=== PATIENT | male | born 1940 | race Caucasian/White ===

== ENCOUNTER → 2018-02-07 | Outpatient (CLI) | payer OTHER ==
[~2018-02-07] MED LIST: ADULT LOW DOSE81 MG PO; CARTIA XT240 M1 PO; ELIQUIS5 MG PO; IRON325 PO; LOPRESSOR25 PO; MULTAQ400 MG PO; PACERONE 200 M200 M1 PO; PRADAXA150 MG PO; TOPROL XL25 MG PO; UROXATRAL10 MG PO; ZOCOR 10 MG TAB10 MG PO; [UNRECOGNIZED DRUG - OTHER] PO
[2018-02-07 09:53] LABS: CREATININE 1.1 mg/dL (0.7-1.3)
== END ==
LOC: CAT 06:23
PROVIDERS: Urology
DX: N28.1 Cyst of kidney, acquired (principal); R31.0 Gross hematuria

== ENCOUNTER → 2018-05-20 | Outpatient (CLI) | payer OTHER ==
[~2018-05-20] VITALS: Ht 177.8 cm; Wt 99.8 kg
[~2018-05-20] MED LIST changes: +ALFUZOSIN HCL10 MG PO; +COUMADIN 5 MG TA5 M1 PO; +PRED FORTE 1% EY5 M1 OPHTHALMIC
--- NOTE | ~2018-05-20 | P ---
[facility] [place] [address] PROCEDURE REPORT Name: REINIER WANG Room #: REG [facility]#: [id number] Admission: 05/20/18 Attend Phys: Reinier Polo MD Discharge: Date of : 42 Report #: [id number] THIS REPORT FOR: //name// CC: Darron Sheffield DO Reinier Polo BRIEF HISTORY: The patient is a 78-year-old male with a history of a tubular adenoma in 2012. It is also noted his grandfather had colon cancer in his 70s. PREOPERATIVE DIAGNOSIS: High risk screening colonoscopy. POSTOPERATIVE DIAGNOSES: 1. Multiple colon polyps. 2. Moderate sigmoid diverticulosis coli. MEDICATIONS: Deep sedation with propofol per anesthesia. SPECIMENS: 1. Cecal polyp. 2. Proximal ascending colon polyps times 2. 3. Polyp at 60 cm. 4. Polyp at 50 cm. ESTIMATED BLOOD LOSS: 3 mL. PROCEDURE: Colonoscopy to cecum and terminal ileum with snare polypectomy and biopsy. FINDINGS: Prior to propofol sedation, procedure of colonoscopy discussed with the patient as well as potential risks, benefits, and complications. He indicates he understands and desires to proceed. With the patient in left lateral decubitus position, digital examination was completed, which revealed no abnormalities. Subsequently, the Olympus video colonoscope was introduced in the rectum, advanced under direct vision to the cecum. Done with minimal difficulty. The cecum was identified by the ileocecal valve and the appendiceal orifice. I was able to briefly advance the tip of the scope in the distal terminal ileum and did see a villous pattern, but due to looping, the scope would not stay. At that point, scope was slowly withdrawn and careful circumferential views were obtained including retroflexion of the scope in the ascending colon. Upon slow withdrawal of the scope, the prep was noted to be good. The mucosa was within normal limits, normal vascular pattern, normal light reflex. As we withdrew the scope, one diminutive polyp was seen and removed by biopsy from the cecum and two diminutive polyps were seen and removed by biopsy from the proximal ascending colon. As we withdrew the scope, no additional abnormalities were noted until about 60 cm in the descending colon [address] [address] PROCEDURE REPORT Name: REINIER WANG Room #: REG [facility].#: [id number] Admission: 05/20/18 Attend Phys: Reinier Polo MD Discharge: Date of : 42 Report #: [id number] and a 5-mm sessile polyp was seen and removed by cold snare polypectomy. At 50 cm, a slightly smaller, about 4 x 4 mm polyp was seen and removed by cold snare polypectomy. The scope was further withdrawn. He was noted to have moderately severe diverticular disease of the sigmoid colon without endoscopic evidence of diverticulitis. The scope was withdrawn into the rectum and upon retroflexion, no abnormalities were seen. Scope was withdrawn. The patient tolerated the procedure well. CONDITION OF THE PATIENT UPON DISCHARGE: Following procedure, the patient drowsy and arousable and will be discharged to home when fully ambulatory. INSTRUCTIONS TO THE PATIENT AND FAMILY AT THE TIME OF DISCHARGE: A total of 5 polyps were identified and removed today. We will follow up on the path report. If 3 or more adenomas, he should return in 3 years, otherwise he should return in 5 years. Last colonoscopy was in 2012. Withdrawal time from the cecum including the polypectomies was 27 minutes 46 seconds. <ELECTRONICALLY SIGNED> By: Reinier Polo MD 05/23/18 1048 0844 1245 Reinier Polo MD /nt
--- NOTE | ~2018-05-20 | PATH ---
[facility] [place] [address] PATHOLOGY RPT PROCEDURE Name: REINIER WANG Room #: REG [facility].#: [id number] Admission: 05/20/18 Date of : 42 Discharge: Report #: [id number] Path Case #: [id number] [facility] Accession Number: [id number] . 01 Material submitted: . PART A: CECAL POLYP PART B: POLYP AT PROXIMAL ASCENDING COLON X2 PART C: POLYP AT 60CM PART D: POLYP AT 50CM . 01 Clinical history: . Pre-Op DX: Diverticulitis Post-Op DX: Colon polyp, diverticulitis . 02 Diagnosis: A. Polyp, cecal polyp, endoscopic biopsy: - Tubular adenoma. - Negative for high grade dysplasia. . B. Polyp x 2, at proximal ascending colon, endoscopic biopsy: - Tubular adenoma, present in multiple fragments. - Negative for high grade dysplasia. . C. Polyp, at 60 cm, endoscopic biopsy: - Tubular adenoma. - Negative for high grade dysplasia. . D. Polyp, at 50 cm, endoscopic biopsy: - Tubular adenoma. - Negative for high grade dysplasia. (IUV/db; 05/21/18) LBQ/05/21/2018 . 02 Electronically signed: . Simin Sanders MD, Pathologist NPI- [id number] . 01 Gross description: . A. Received in formalin labeled "Reinier Wang, cecal polyp," is a single segment of orozco soft tissue measuring 0.5 cm in maximum dimension. The specimen is entirely submitted in cassette A1. . B. Received in formalin labeled "Reinier Wang, polyp at proximal ascending colon x2," are 3 segments of orozco soft tissue measuring 0.8 x 0.6 x 0.2 cm in aggregate dimensions and ranging from 0.2 to 0.4 cm in maximum dimension. The specimen is submitted entirely in cassette B1[place] [address] PATHOLOGY RPT PROCEDURE Name: REINIER WANG Room #: REG CLI [facility].#: [id number] Admission: 05/20/18 Date of : 42 Discharge: Report #: [id number] Path Case #: [id number] C. Received in formalin labeled "Reinier Wang, polyp at 60 cm," is a single segment of orozco soft tissue measuring 0.4 cm in maximum dimension. The specimen is entirely submitted in cassette C1. . D. Received in formalin labeled "Spaniol, Reinier, polyp at 50 cm," is a single segment of orozco soft tissue measuring 0.4 cm in maximum dimension. The specimen is entirely submitted in cassette D1. (TSD; 05/20/2018) TOB/TOB . 02 Pathologist provided ICD-10: D12.0, D12.2, D12.6 . 02 CPT . 446590, 957155, 459026, 745261 Performed at: [address], [place] [id number] MD Juliano Joyner MD Phone: [phone] Performed at: [address] [id number] MD Simin Sanders MD Phone: [phone]
== END | disposition home or self-care (01) ==
LOC: GI 07:05
DX: Z12.11 Encounter for screening for malignant neoplasm of colon (principal); Z86.010 Personal history of colon polyps; Z80.0 Family history of malignant neoplasm of digestive organs; D12.0 Benign neoplasm of cecum; D12.2 Benign neoplasm of ascending colon; D12.4 Benign neoplasm of descending colon; D12.5 Benign neoplasm of sigmoid colon; K57.92 Diverticulitis of intestine, part unspecified, without perforation or abscess without bleeding; K57.30 Diverticulosis of large intestine without perforation or abscess without bleeding
CPT/HCPCS: 62110; 62900

== ENCOUNTER → 2018-12-24 | Outpatient (CLI) | payer OTHER ==
--- NOTE | 2018-12-24 11:57 | 2DMMODE ---
[facility] [place] [place] [address] 2 D/M-MODE ECHOCARDIOGRAM Name: REINIER WANG Room #: REG [facility]#: [id number] ������������� Admission: 12/24/18 ������������� Attend Phys: Neil Lobo Discharge: ��� ������������� ��� Date of : 42 Date of Service: 12/24/18 1157 �� Report #: [id number] �������� ��������������������������������������������[id number] THIS REPORT FOR: //name// APPROVED REPORT Study performed: 12/24/2018 10:54:36 EXAM: Comprehensive 2D, Doppler, and color-flow Echocardiogram Patient Location: Out-Patient Room #: Echo lab 2 Status: routine BSA: 2.21 HR: 75 bpm BP: 128/80 mmHg Other Information Study Quality: Good Indications Atrial Fibrillation Hypertension/HDD 2D Dimensions RVDd: 39.73 mm IVSd: 11.16 (7-11mm) LVOT Diam: 18.38 (18-24mm) LVDd: 47.76 mm PWd: 10.02 (7-11mm) Ascending Ao: 34.18 (22-36mm) LVDs: 32.43 (25-40mm) Aortic Root: 31.21 mm IVC: 17.00 mm Volumes Left Atrial Volume (Systole) Single Plane 4CH: 38.55 mL Single Plane 2CH: 47.96 mL LA ESV Index: 22.00 mL/m2 Aortic Valve AoV Peak Soto.: 1.10 m/s AO Peak Gr.: 4.88 mmHg LVOT Max P.29 mmHg LVOT Max V: 0.91 m/s DANI Vmax: 2.18 cm2 Mitral Valve E/A Ratio: 1.7 MV Decel. Time: 166.22 ms MV E Max Soto.: 1.22 m/s [facility] [address] [place] [address] 2 D/M-MODE ECHOCARDIOGRAM Name: REINIER WANG [facility] [id number] ������������� Admission: 12/24/18 ������������� Attend Phys: Neil Lobo Discharge: ��� ������������� ��� Date of : 42 Date of Service: 12/24/18 1157 �� Report #: [id number] �������� ��������������������������������������������[id number] MV A Soto.: 0.73 m/s MV PHT: 48.20 ms IVRT: 110.73 ms Pulmonary Valve PV Peak Soto.: 0.98 m/s PV Peak Gr.: 3.85 mmHg Pulmonary Vein P Vein S: 0.73 m/s P Vein A: 0.25 m/s P Vein D: 0.73 m/s P Vein A Dur.: 143.0 msec P Vein S/D Ratio: 1.00 Tricuspid Valve TR Peak Soto.: 2.88 m/s TR Peak Gr.: 33.27 mmHg PA Pressure: 38.00 mmHg Left Ventricle The left ventricle is normal size. There is normal LV segmental wall motion. There is normal left ventricular wall thickness. The left ventricular systolic function is normal. The left ventricular ejection fraction is within the normal range. LVEF is 55-60%. The left ventricular diastolic function is abnormal. Right Ventricle The right ventricle is normal size. The right ventricular systolic function is normal. Atria The left atrium size is normal. Right atrium is mildly dilated. Aortic Valve The aortic valve is normal in structure. Aortic valve is calcified. Mild aortic regurgitation. There is no aortic valvular stenosis. Mitral Valve The mitral valve is normal in structure. There is no mitral valve regurgitation noted. No evidence of mitral valve stenosis. Tricuspid Valve The tricuspid valve is normal in structure. There is mild tricuspid regurgitation. Estimated PAP 38 mmHg. There is mild pulmonary hypertension. [address] [address] 2 D/M-MODE ECHOCARDIOGRAM Name: REINIER WANG Room #: REG Paul[facility]#: [id number] ������������� Admission: 12/24/18 ������������� Attend Phys: Neil Lobo Discharge: ��� ������������� ��� Date of : 42 Date of Service: 12/24/18 1157 �� Report #: [id number] �������� ��������������������������������������������[id number] Pulmonic Valve The pulmonary valve is normal in structure. Trace pulmonic regurgitation. Great Vessels The aortic root is normal in size. IVC is normal in size and collapses >50% with inspiration. Pericardium There is no pericardial effusion. <Conclusion> LVEF is 55-60%. The right ventricle is normal size. The left atrium size is normal. The aortic valve is normal in structure. Aortic valve is calcified. Mild aortic regurgitation. There is no mitral valve regurgitation noted. There is mild tricuspid regurgitation. Estimated PAP 38 mmHg. There is mild pulmonary hypertension. The aortic root is normal in size. There is no pericardial effusion. ��������������������������������������������� <ELECTRONICALLY SIGNED> ���������������������������������������� By: Jaylen Alcala MD, FACC ��������������������������������������������� 12/24/18 1157 1157 1157 Jaylen Alcala MD, FACC /INF
== END ==
LOC: CV 10:40
DX: I08.2 Rheumatic disorders of both aortic and tricuspid valves (principal); I27.20 Pulmonary hypertension, unspecified; I48.91 Unspecified atrial fibrillation; R42 Dizziness and giddiness; I10 Essential (primary) hypertension; E78.5 Hyperlipidemia, unspecified

== ENCOUNTER → 2019-01-15 | Outpatient (CLI) | payer OTHER | LOC: NUC 01-01 10:23 | DX: I48.91 Unspecified atrial fibrillation (principal); I47.2 Ventricular tachycardia; Z79.01 Long term (current) use of anticoagulants; Z68.30 Body mass index [BMI] 30.0-30.9, adult ==

== ENCOUNTER → 2019-10-21 | Outpatient (CLI) | payer OTHER ==
[~2019-10-21] MED LIST changes: +CENTRUM SILVER1 EAC2 PO; +COUMADIN 2.5MG2.5 M1 PO; +FLOMAX0.4 MG PO
== END ==
LOC: SJCVC 11:30
DX: Z51.81 Encounter for therapeutic drug level monitoring (principal); I48.91 Unspecified atrial fibrillation; I48.92 Unspecified atrial flutter; E78.00 Pure hypercholesterolemia, unspecified; Z79.01 Long term (current) use of anticoagulants

== ENCOUNTER → 2019-11-05 | Outpatient (CLI) | payer OTHER | LOC: SJCVC 14:46 | DX: I48.0 Paroxysmal atrial fibrillation (principal); I49.5 Sick sinus syndrome; R94.31 Abnormal electrocardiogram [ECG] [EKG]; Z79.01 Long term (current) use of anticoagulants; Z79.899 Other long term (current) drug therapy; Z82.49 Family history of ischemic heart disease and other diseases of the circulatory system; Z87.891 Personal history of nicotine dependence ==

== ENCOUNTER → 2019-11-07 | Outpatient (CLI) | payer OTHER ==
[~2019-11-07] VITALS: Ht 175.3 cm; Wt 102.1 kg
[2019-11-07 12:14] LABS: ABSOLUTE NEUTROPHILS 3.3 thou/uL (1.4-8.2); BASOPHILS 1.2 % (0.0-2.0); EOSINOPHILS 11.4 % (0.0-3.0); HEMATOCRIT 38.9 % (42.0-52.0); HEMOGLOBIN 12.8 gm/dL (14.0-18.0); LYMPHOCYTES 21.2 % (24.0-44.0); MCH 30.6 pg (26.0-34.0); MCHC 32.9 g/dL (28.0-37.0); MONOCYTES 7.9 % (1.0-8.0); PLATELET COUNT 219 thou/uL (150-400); POLYS 58.3 % (36.0-66.0); RBC 4.19 mil/uL (4.50-6.00); RDW 14.2 % (10.5-14.5); WBC 5.6 thou/uL (4.0-11.0)
[2019-11-07 12:23] VITALS: BP 119/59
[2019-11-07 12:26] LABS: CALCIUM 8.9 mg/dL (8.5-10.1); CREATININE 1.1 mg/dL (0.7-1.3); POTASSIUM 4.2 mmol/L (3.5-5.1)
[2019-11-07 12:31] LABS: ALBUMIN 3.3 g/dL (3.4-5.0); TOTAL BILIRUBIN 0.4 mg/dL (<0.1-1.0); TOTAL PROTEIN 8.1 g/dL (6.4-8.2)
[2019-11-07 12:36] LABS: APTT 55.2 Seconds (24.5-32.8); INR 2.3; PROTIME 23.3 Seconds (9.3-11.4)
--- NOTE | 2019-11-07 16:25 | EKG ---
[place] [address] [facility] [place] [address] ELECTROCARDIOGRAM REPORT Name: REINIER WANG Room #: REG CLI [facility]#: [id number] Admission: 11/07/19 Attend Phys: Neil Lobo MD Discharge: Date of : 42 Report #: [id number] THIS REPORT FOR: //name// [facility] Test Date: 2019-11-07 Test Time: 12:49:18 Pat Name: REINIER WANG Department: Room: Gender: Ribber: Tod LINDA : 1940 Requested By: Neil Lobo Order Number: [id number] MD: Karlos Torres Measurements Intervals [place] Rate: 81 P: 60 DC: 164 QRS: 53 QRSD: 95 T: -5 QT: 390 QTc: 453 Interpretive Statements Sinus rhythm RSR' in V1 or V2, right VCD Compared to ECG 12/23/2015 07:52:12 No significant change was found Electronically Signed On 11-07-2019 16:25:00 [employer] by Karlos Torres [email or web address] <ELECTRONICALLY SIGNED> By: Karlos Torres MD, [facility] 11/07/19 1625 1249 1249 Karlos Torres MD, [facility] /EPI
== END | disposition home or self-care (01) ==
LOC: CATH 10:54
PROVIDERS: Internal Medicine Cardiovascular Disease
DX: I48.91 Unspecified atrial fibrillation (principal); Z53.9 Procedure and treatment not carried out, unspecified reason; I49.5 Sick sinus syndrome; E78.5 Hyperlipidemia, unspecified; D64.9 Anemia, unspecified; N40.0 Benign prostatic hyperplasia without lower urinary tract symptoms; G47.30 Sleep apnea, unspecified; E66.09 Other obesity due to excess calories; Z98.890 Other specified postprocedural states; Z79.899 Other long term (current) drug therapy; Z87.891 Personal history of nicotine dependence; Z98.41 Cataract extraction status, right eye; Z98.42 Cataract extraction status, left eye; Z87.19 Personal history of other diseases of the digestive system; Z79.01 Long term (current) use of anticoagulants

== ENCOUNTER → 2019-12-09 | Outpatient (CLI) | payer OTHER | LOC: SJCVC 14:30 | DX: I48.0 Paroxysmal atrial fibrillation (principal); I48.3 Typical atrial flutter; Z79.899 Other long term (current) drug therapy; Z87.891 Personal history of nicotine dependence ==

== ENCOUNTER → 2020-01-06 | Outpatient (CLI) | payer OTHER | LOC: SJCVC 10:27 | DX: Z51.81 Encounter for therapeutic drug level monitoring (principal); I48.91 Unspecified atrial fibrillation; E78.00 Pure hypercholesterolemia, unspecified; I49.5 Sick sinus syndrome; Z92.89 Personal history of other medical treatment; Z79.899 Other long term (current) drug therapy ==

== ENCOUNTER → 2020-02-03 | Outpatient (CLI) | payer OTHER | LOC: SJCVC 08:58 | DX: Z51.81 Encounter for therapeutic drug level monitoring (principal); I48.91 Unspecified atrial fibrillation; E78.00 Pure hypercholesterolemia, unspecified; Z79.01 Long term (current) use of anticoagulants; Z79.899 Other long term (current) drug therapy ==

== ENCOUNTER → 2020-03-04 | Outpatient (CLI) | payer OTHER | LOC: SJCVC 11:34 | DX: Z51.81 Encounter for therapeutic drug level monitoring (principal); Z79.01 Long term (current) use of anticoagulants ==

== ENCOUNTER → 2020-03-30 | Outpatient (CLI) | payer OTHER | LOC: SJCVC 09:38 | PROVIDERS: ATTEND Internal Medicine Cardiovascular Disease | DX: Z51.81 Encounter for therapeutic drug level monitoring (principal); I48.91 Unspecified atrial fibrillation; E78.00 Pure hypercholesterolemia, unspecified; Z79.01 Long term (current) use of anticoagulants; Z79.899 Other long term (current) drug therapy ==

== ENCOUNTER → 2020-06-22 | Outpatient (CLI) | payer OTHER | LOC: SJCVC 13:17 | PROVIDERS: ATTEND Internal Medicine Cardiovascular Disease | DX: I48.0 Paroxysmal atrial fibrillation (principal); I49.5 Sick sinus syndrome; I48.3 Typical atrial flutter; Z79.899 Other long term (current) drug therapy; Z87.891 Personal history of nicotine dependence ==

== ENCOUNTER → 2020-07-09 | Outpatient (CLI) | payer OTHER | LOC: SJCVCIMAG 08:01 | PROVIDERS: ATTEND Internal Medicine Cardiovascular Disease | DX: I48.91 Unspecified atrial fibrillation (principal); I49.3 Ventricular premature depolarization; Z98.890 Other specified postprocedural states ==

== ENCOUNTER → 2020-08-11 | Outpatient (CLI) | payer OTHER | LOC: SJCVC 14:21 | PROVIDERS: ATTEND Internal Medicine Cardiovascular Disease | DX: I49.5 Sick sinus syndrome (principal); I49.49 Other premature depolarization; I48.0 Paroxysmal atrial fibrillation; I48.3 Typical atrial flutter; Z79.899 Other long term (current) drug therapy; Z87.891 Personal history of nicotine dependence ==

== ENCOUNTER → 2020-09-16 | Outpatient (CLI) | payer OTHER ==
--- NOTE | 2020-09-17 13:35 | P ---
[facility] [place] [address] PROCEDURE REPORT Name: REINIER WANG Room #: REG [facility] [id number] Admission: 09/16/20 Attend Phys: Neil Lobo MD Discharge: Date of : 42 Report #: [id number] THIS REPORT FOR: cc: Darron Sheffield,Neil Gibbs MD ~ CC: Darron Lobo PREOPERATIVE DIAGNOSES: 1. Atrial fibrillation. 2. Atrial flutter. 3. Bradycardia. PROCEDURE PERFORMED: Implantation of implantable loop recorder. DESCRIPTION OF PROCEDURE: The patient underwent informed consent. He was prepped and draped in standard fashion. I injected lidocaine at the incision site. Incision was made and the device was injected under the skin and R waves were satisfactory. A single layer of suture was performed and surgical glue was placed over skin layer and a surgical dressing was placed. The patient had no procedure related complications. The implanted loop recorder was a Stylesight Reveal model # LNQ11, serial #[id number]. CONCLUSIONS: Successful implantation of a loop recorder. <ELECTRONICALLY SIGNED> By: Neil Lobo MD 09/17/20 1335 1037 2327 Neil Lobo MD /nt
== END | disposition home or self-care (01) ==
LOC: CATH 07:32
PROVIDERS: ATTEND Internal Medicine Cardiovascular Disease
DX: I48.91 Unspecified atrial fibrillation (principal); I48.92 Unspecified atrial flutter; R00.1 Bradycardia, unspecified; Z98.890 Other specified postprocedural states; Z79.899 Other long term (current) drug therapy; Z79.01 Long term (current) use of anticoagulants

== ENCOUNTER → 2020-12-15 | Outpatient (CLI) | payer OTHER | LOC: SJCVC 13:06 | PROVIDERS: ATTEND Internal Medicine Cardiovascular Disease | DX: I48.0 Paroxysmal atrial fibrillation (principal); I48.3 Typical atrial flutter; I49.5 Sick sinus syndrome; G47.33 Obstructive sleep apnea (adult) (pediatric); Z79.01 Long term (current) use of anticoagulants; Z79.899 Other long term (current) drug therapy; Z87.891 Personal history of nicotine dependence; Z82.49 Family history of ischemic heart disease and other diseases of the circulatory system ==

== ENCOUNTER → 2021-01-05 | Outpatient (CLI) | payer OTHER ==
[2021-01-05 10:07] LABS: ABSOLUTE NEUTROPHILS 2.4 thou/uL (1.4-8.2); BASOPHILS 0.4 % (0.0-2.0); EOSINOPHILS 2.2 % (0.0-3.0); HEMATOCRIT 41.7 % (42.0-52.0); HEMOGLOBIN 13.7 gm/dL (14.0-18.0); LYMPHOCYTES 33.5 % (24.0-44.0); MCH 30.7 pg (26.0-34.0); MCV 93.3 fL (80.0-100.0); MONOCYTES 9.3 % (1.0-8.0); PLATELET COUNT 144 thou/uL (150-400); POLYS 54.6 % (36.0-66.0); RBC 4.47 mil/uL (4.50-6.00); RDW 14.3 % (10.5-14.5); WBC 4.3 thou/uL (4.0-11.0)
[2021-01-05 10:23] LABS: ALBUMIN 3.6 g/dL (3.4-5.0); CALCIUM 8.8 mg/dL (8.5-10.1); CREATININE 1.2 mg/dL (0.7-1.3); TOTAL BILIRUBIN 0.3 mg/dL (0.2-1.0); TOTAL PROTEIN 7.4 g/dL (6.4-8.2)
== END ==
LOC: CAT 08:51
PROVIDERS: ATTEND Internal Medicine Cardiovascular Disease
DX: Z01.818 Encounter for other preprocedural examination (principal); I25.10 Atherosclerotic heart disease of native coronary artery without angina pectoris; I48.91 Unspecified atrial fibrillation; K76.89 Other specified diseases of liver

== ENCOUNTER → 2021-01-10 | Outpatient (CLI) | payer OTHER ==
[~2021-01-10] VITALS: Ht 177.8 cm; Wt 104.3 kg
[~2021-01-10] MED LIST changes: +FLECAINIDE ACET50 M2 PO; +PRADAXA110 MG PO
--- NOTE | ~2021-01-10 | P ---
[facility] [place] [facility] [place] [address] PROCEDURE REPORT Name: REINIER WANG Room #: REG CONSTANCE Paulino#: [id number] Admission: 01/10/21 Attend Phys: Neil Lobo MD Discharge: Date of : 42 Report #: [id number] THIS REPORT FOR: cc: Darron Sheffield James A. DO Couchonnal, Luis F. MD ~ DATE OF SERVICE: 01/10/2021 PREOPERATIVE DIAGNOSIS: Atrial fibrillation. POSTOPERATIVE DIAGNOSIS: Atrial fibrillation. PROCEDURES PERFORMED: 1. Atrial fibrillation ablation, CPT code 98015. 2. 3D mapping, CPT code 44453. 3. Intracardiac echo, CPT code 28082. 4. Focal ablation, CPT code 38749. DESCRIPTION OF PROCEDURE: The patient is a 80-year-old status post atrial flutter ablation back in 2016, who was subsequently diagnosed with atrial fibrillation. He has an implantable loop recorder and has a known history of sick sinus syndrome. He has continued to have recurrent AFib despite low-dose antiarrhythmic drug therapy and is here for AFib ablation. ANESTHESIA: The patient underwent general anesthesia with no anesthesia related complications. DESCRIPTION OF PROCEDURE: The patient underwent informed consent. We discussed the details of the procedure including the risks, which include but not limited to bleeding, infection, vascular damage, cardiac perforation, stroke, AR as well as damage to the beaver conduction system. He understood these risks and was willing to proceed. The patient was brought to EP laboratory in a fasting and sedated state and prepped and draped in a sterile fashion. Prior to the procedure, he did undergo a transesophageal echo, which showed no evidence of left atrial appendage thrombus and then was prepped appropriately. Next, I injected lidocaine at the right groin and obtained access to the right femoral vein x3, placing an 8, 9 and 7-Qatari short sheath using the modified Seldinger technique. Next, under fluoroscopy, a decapolar catheter was placed in the coronary sinus and an ICE catheter was placed in the right atrium. At baseline, the patient was in sinus rhythm. Using intracardiac ultrasound, I verified the presence of two left and two right pulmonary veins and this was merged with the cardiac CT scan. Next, the patient was systemically heparinized and a transseptal was performed using an SL1 sheath and a [place] needle. This was straightforward and then I [address] [address] PROCEDURE REPORT Name: REINIER WANG Room #: REG CLI [facility]#: [id number] Admission: 01/10/21 Attend Phys: Neil Lobo MD Discharge: Date of : 42 Report #: [id number] exchanged the SL1 sheath for the cryo sheath and the Lasso catheter was placed in the left atrium. A 3D voltage map and geometry of the left atrium was created and then the cryoballoon was placed into the left atrium. The left superior pulmonary vein underwent a 4-minute freeze and isolated at 41 seconds. The left inferior pulmonary vein underwent a 4-minute freeze and isolated at 37 seconds. The right superior pulmonary vein underwent 180 second freeze followed by a 240 second freeze and 96 second freeze, none of which resulted in isolation. This vein did have more of a horizontal takeoff and despite clocking the balloon, I could not achieve isolation. Therefore, I decided to go to the right inferior pulmonary vein and this vein underwent a single 3-minute freeze and isolated at 38 seconds. I then went back to check the right superior pulmonary vein and this was now isolated as well. I did perform one additional freeze of this vein of 3 minutes duration, utilizing the upper branch of the right superior pulmonary vein. A repeat voltage map was created, which showed that there was isolation of all 4 pulmonary veins. There was still a significant fractionated atrial singles along the roof region of the left atrium. Therefore, I decided to proceed with creation of a roofline. ISOLATION OF THE LEFT ATRIAL ROOF: Next, the cryoballoon was anchored from the left superior pulmonary vein and 3 freezes were performed along the posterior roof region, each freeze was of 3 minutes duration. Esophageal temperatures remained within normal limits. A single freeze was performed along the posterior roof anchored from the right superior pulmonary vein where phrenic nerve pacing was performed and there was never any phrenic nerve compromise. The cryoballoon was again removed from the left atrium and the Lasso catheter was again placed into the left atrium and a detailed 3D voltage map was created and this showed that now we had isolation of all 4 pulmonary veins, which had already been demonstrated, but now also had isolation of the posterior roof region. As such, the procedure was now concluded. The patient received systemic protamine and once ACT was within acceptable range, catheters and sheaths were pulled and hemostasis was obtained. A [id number] suture was performed in the right groin region. Prior to pulling catheters, intracardiac ultrasound verified there was no evidence of a pericardial effusion. CONCLUSIONS: [facility] [address] [place] [address] PROCEDURE REPORT Name: REINIER WANG Room #: REG [facility].#: [id number] Admission: 01/10/21 Attend Phys: Neil Lobo MD Discharge: Date of : 42 Report #: [id number] 1. Successful AFib ablation with isolation of the pulmonary veins. 2. Successful posterior roofline creation. By: 1215 1643 Neil Lobo MD /nt
[2021-01-10 07:34] VITALS: BP 133/67
[2021-01-10 07:57] LABS: ABSOLUTE NEUTROPHILS 1.9 thou/uL (1.4-8.2); BASOPHILS 0.6 % (0.0-2.0); EOSINOPHILS 2.1 % (0.0-3.0); HEMATOCRIT 39.6 % (42.0-52.0); HEMOGLOBIN 13.1 gm/dL (14.0-18.0); LYMPHOCYTES 37.5 % (24.0-44.0); MCH 30.8 pg (26.0-34.0); MCHC 33.1 g/dL (28.0-37.0); MCV 93.2 fL (80.0-100.0); MONOCYTES 10.9 % (1.0-8.0); PLATELET COUNT 138 thou/uL (150-400); POLYS 48.9 % (36.0-66.0); RBC 4.24 mil/uL (4.50-6.00); RDW 14.5 % (10.5-14.5); WBC 3.8 thou/uL (4.0-11.0)
[2021-01-10 08:14] LABS: CALCIUM 8.5 mg/dL (8.5-10.1); CREATININE 1.3 mg/dL (0.7-1.3)
[2021-01-10 08:17] LABS: APTT 34.7 Seconds (24.5-32.8); INR 1.1; PROTIME 11.2 Seconds (9.3-11.4)
[2021-01-10 08:20] LABS: ALBUMIN 3.4 g/dL (3.4-5.0); TOTAL BILIRUBIN 0.3 mg/dL (0.2-1.0); TOTAL PROTEIN 6.9 g/dL (6.4-8.2)
--- NOTE | 2021-01-10 14:01 | TEE ---
[facility] [place] [address] [place] [address] TRANSESOPHAGEAL ECHOCARDIOGRAM Name: REINIER WANG Room #: REG [facility].#: [id number] Admission: 01/10/21 Attend Phys: Neil Lobo MD Discharge: Date of : 42 Report #: [id number] THIS REPORT FOR: cc: Darron Sheffield James A. DO Santiago, Patrick MD [facility] ~ ADDENDUM APPROVED REPORT Study performed: 01/10/2021 08:17:25 EXAM: Transesophageal Echocardiogram Patient Location: EP LAB Status: routine BSA: 2.21 HR: 79 bpm Rhythm: Atrial Fibrillation Other Information Study Quality: Adequate Indications Atrial Fibrillation Procedure After obtaining informed consent, patient underwent transesophageal echo in the EP Lab. Type of Sedation : General Anesthesia Transesophageal probe was inserted and advanced into esophagus without difficulty by Raghu Salazar MD. Echo enhancement indication: R/O Septal defect. Echo enhancement agent administered: Agitated Saline The JERMAINE was performed without complications. Throughout the procedure, the blood pressure, pulse oximetry, cardiac rhythm, and rate were monitored. The patient tolerated the procedure without adverse effects. Recovery from conscious sedation was uneventful and vital signs were stable. Left Ventricle The left ventricle is normal size. There is normal LV segmental wall motion. There is normal left ventricular wall thickness. Left ventricular systolic function is normal. LVEF is 55-60%. [facility] [address] [address] TRANSESOPHAGEAL ECHOCARDIOGRAM Name: REINIER WANG Room #: REG [facility] [id number] Admission: 01/10/21 Attend Phys: Neil Lobo Discharge: Date of : 42 Report #: [id number] Right Ventricle The right ventricle is normal size. The right ventricular systolic function is normal. Atria The left atrium size is normal. No thrombus is visualized in the left atrium or appendage. No shunting noted with contrast bubble injection. The right atrium size is normal. Aortic Valve The aortic valve is normal in structure. Mild aortic regurgitation. There is no aortic valvular stenosis. Mitral Valve The mitral valve is normal in structure. Mild mitral regurgitation. Tricuspid Valve The tricuspid valve is normal in structure. Trace tricuspid regurgitation. Pulmonic Valve The pulmonary valve is normal in structure. Pericardium There is no pericardial effusion. <Conclusion> Anesthesia performed by the anesthesiologist normal left ventricular size/wall thickness Ejection fraction 60% Left atrial appendage, no evidence of obvious mass or clot detected Normal atrial size Color-flow Doppler study was performed of the aortic/mitral/tricuspid/pulmonary valve Tricuspid aortic valve Mild aortic/mitral valve insufficiency Normal right ventricle size/function No obvious tricuspid valve insufficiency detected No pericardial effusion No evidence of ASD/VSD by bubble study/color flow. <ELECTRONICALLY SIGNED> By: Raghu Salazar MD, FACC 01/10/21 140 140 140 Raghu Salazar MD, [facility] /INF
--- NOTE | 2021-01-10 14:02 | NUR ---
1340-STOPCOCK REMOVED FROM RIGHT GROIN. SLIGHT BLEEDING THAT STOPPED AFTER 7 MINUTES OF MANUAL PRESSURE APPLIED. NO FURTHER BLEEDING NOTED. RIGHT GROIN SOFT TO TOUCH. 4X4 GAUZE APPLIED AND COVERED WITH TEGADERM. PT TOLERATED WELL.
== END | disposition home or self-care (01) ==
LOC: CATH 06:31
PROVIDERS: ATTEND Internal Medicine Cardiovascular Disease
DX: I48.91 Unspecified atrial fibrillation (principal); I08.3 Combined rheumatic disorders of mitral, aortic and tricuspid valves; I48.92 Unspecified atrial flutter; I49.5 Sick sinus syndrome; I10 Essential (primary) hypertension; D64.9 Anemia, unspecified; G47.30 Sleep apnea, unspecified; N40.0 Benign prostatic hyperplasia without lower urinary tract symptoms; Z98.890 Other specified postprocedural states; Z79.899 Other long term (current) drug therapy; Z79.01 Long term (current) use of anticoagulants; Z98.41 Cataract extraction status, right eye; Z98.42 Cataract extraction status, left eye; Z87.891 Personal history of nicotine dependence; Z87.19 Personal history of other diseases of the digestive system
CPT/HCPCS: 62110; 62900; 65020; 65130; 70005

== ENCOUNTER → 2021-01-27 | Outpatient (CLI) | payer OTHER | LOC: LAB 13:39 | PROVIDERS: ATTEND Internal Medicine Cardiovascular Disease | DX: Z01.812 Encounter for preprocedural laboratory examination (principal); Z20.822 Contact with and (suspected) exposure to COVID-19 ==

== ENCOUNTER → 2021-02-15 | Outpatient (CLI) | payer OTHER | LOC: SJCVC 13:34 | PROVIDERS: ATTEND Internal Medicine Cardiovascular Disease | DX: R94.31 Abnormal electrocardiogram [ECG] [EKG] (principal); I45.10 Unspecified right bundle-branch block; I48.92 Unspecified atrial flutter; I44.0 Atrioventricular block, first degree; I48.0 Paroxysmal atrial fibrillation; G47.33 Obstructive sleep apnea (adult) (pediatric); Z98.890 Other specified postprocedural states; Z79.899 Other long term (current) drug therapy; Z86.16 Personal history of COVID-19; Z87.891 Personal history of nicotine dependence; Z82.49 Family history of ischemic heart disease and other diseases of the circulatory system ==

== ENCOUNTER → 2021-03-10 | Outpatient (CLI) | payer OTHER | LOC: SJCVC 16:41 | PROVIDERS: ATTEND Internal Medicine Cardiovascular Disease | DX: R94.31 Abnormal electrocardiogram [ECG] [EKG] (principal); I45.10 Unspecified right bundle-branch block; I48.0 Paroxysmal atrial fibrillation; I48.92 Unspecified atrial flutter; R07.9 Chest pain, unspecified; I49.5 Sick sinus syndrome; G47.33 Obstructive sleep apnea (adult) (pediatric); Z98.890 Other specified postprocedural states; Z79.899 Other long term (current) drug therapy; Z86.16 Personal history of COVID-19; Z87.891 Personal history of nicotine dependence; Z82.49 Family history of ischemic heart disease and other diseases of the circulatory system ==

== ENCOUNTER → 2021-03-21 | Outpatient (CLI) | payer OTHER | LOC: SJCVCIMAG 09:28 | PROVIDERS: ATTEND Internal Medicine Cardiovascular Disease | DX: I48.92 Unspecified atrial flutter (principal); I49.3 Ventricular premature depolarization; I47.2 Ventricular tachycardia; R94.31 Abnormal electrocardiogram [ECG] [EKG]; Z79.899 Other long term (current) drug therapy; Z87.891 Personal history of nicotine dependence ==

== ENCOUNTER → 2021-04-20 | Outpatient (CLI) | payer OTHER ==
[~2021-04-20] VITALS: Ht 177.8 cm; Wt 104.3 kg
[~2021-04-20] MED LIST changes: +ASA81BEC PO
[2021-04-20 09:00] VITALS: BP 99/53
[2021-04-20 09:17] LABS: HEMATOCRIT 39.2 % (42.0-52.0); HEMOGLOBIN 13.2 gm/dL (14.0-18.0); MCH 31.9 pg (26.0-34.0); MCHC 33.7 g/dL (28.0-37.0); MCV 94.5 fL (80.0-100.0); RBC 4.15 mil/uL (4.50-6.00); WBC 3.7 thou/uL (4.0-11.0)
[2021-04-20 09:25] LABS: CALCIUM 8.6 mg/dL (8.5-10.1); CREATININE 1.3 mg/dL (0.7-1.3); POTASSIUM 4.1 mmol/L (3.5-5.1)
--- NOTE | 2021-04-20 12:39 | CATHLAB ---
[facility] [place] [address] INVASIVE PROCEDURE REPORT Name: REINIER WANG Room #: REG [facility]#: [id number] Admission: 04/20/21 Attend Phys: Gasper Siegel MD Discharge: Date of : 42 Report #: [id number] THIS REPORT FOR: cc: Darron Sheffield James A. DO Park, Jin S. MD ~ APPROVED REPORT Study performed: 04/20/2021 09:13:33 Patient Details Patient Status: Out-Patient Room #: The patient is a 81 year-old male Event Personnel Gasper Siegel Slurry Blender, Yajaira Cohen RTR Monitor, Tigist Hawk RN RN, Ml Mcfarlane RTR, PHOTOGRAPHS CURATOR Scrub Procedures Performed Art Access - R radial artery Coronary Angiography Only [id number] CORANG Hemostasis with Hemoband 30169 Initial Mod Sed Same Phys/QHP Gr 427165 92785 Mod Sed Same Phys/QHP Ea [id number] Indication Positive stress test, Chest pain Risk Factors Hypercholesterolemia, Hypertension Procedure Narrative The Right Wrist^ was infiltrated with 1% Lidocaine subcutaneous anesthesia. A TRANSRADIAL SLENDER 6F GLIDESHEATH KIT #[id number] sheath was inserted into the Right Radial Artery^. Coronary angiography was performed using coronary diagnostic catheters. The right coronary system was accessed and visualized with a JR4 catheter. The left coronary system was accessed and visualized with a JL 3.5 catheter. The patient tolerated the procedure well and there were no complications associated with the procedure. Intraoperative Conscious Sedation Sedation start time: 9:50 Case end Time: 10:14 Fentanyl 25 mcg Versed 1 mg [facility] [address] [place] [address] INVASIVE PROCEDURE REPORT Name: FELIPERADHA [id number] Admission: 04/20/21 Attend Phys: Gasper Siegel MD Discharge: Date of : 42 Report #: [id number] Fluoro Time: 6.80 minutes Dose: DAP 41637.30 cGycm2 1326 mGy Contrast Type and Amount: Visipaque 45 ml Coronary Angiography The patient's coronary anatomy is right dominant. Diagnostic Cath Left Main The left main artery is a large-caliber vessel, patent with no flow-limiting lesions. LAD The LAD is a moderate-sized caliber vessel, traverses the anterior wall and wraps around the apex. There is mild diffuse disease in the proximal segment, 20 to 30%. Diagonal 1 This is a moderate-sized caliber vessel, patent with no flow-limiting lesions. Circumflex This is a moderate-sized caliber vessel, supplies 2 OM vessels. OM1 This is a moderate-sized caliber vessel, patent with no flow-limiting lesions. OM2 This is a small to moderate-sized caliber vessel, with no flow-limiting lesions. Right Coronary The RCA is a moderate to large caliber vessel, dominant. There is mild to moderate calcified stenosis in the proximal segment, 30 to 40%. R PDA This is a moderate-sized caliber vessel, patent with no flow-limiting lesions. RPLV There are several RPL branches, patent with no flow-limiting lesions. Left Ventriculography Left Ventriculography was not performed. Ejection Fraction was >55% based off patient's Nuclear Cardiac Stress Test. Hemodynamics The aortic pressure is 96/63 mmHg with a mean of 55 mmHg. Conclusion 1. 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 2. The RCA is dominant, supplying the PDA. [facility] [address] [place] [address] INVASIVE PROCEDURE REPORT Name: REINIER WANG Room #: REG [facility] [id number] Admission: 04/20/21 Attend Phys: Gasper Siegel MD Discharge: Date of : 42 Report #: [id number] 3. There is normal LV systolic function. 4. Recommend guideline directed medical therapy. <ELECTRONICALLY SIGNED> By: Gasper Siegel MD 04/20/21 1238 1238 1238 Gasper Siegel MD /INF
--- NOTE | 2021-04-21 07:24 | EKG ---
[facility] [place] [address] ELECTROCARDIOGRAM REPORT Name: REINIER WANG [facility]: [facility] [id number] Admission: 04/20/21 Attend Phys: Gasper Siegel MD Discharge: Date of : 42 Report #: [id number] [facility] Test Date: 2021-04-20 Test Time: 08:55:32 Pat Name: REINIER WANG Department: Room: Gender: M [employer]: LES : 1940 Requested By: Gasper Siegel Order Number: [id number] MD: Raghu Salazar Measurements Intervals [place] Rate: 66 P: AR: QRS: 75 QRSD: 97 T: 5 QT: 387 QTc: 406 Interpretive Statements ATRIAL FIBRILLATION Ventricular premature complex RSR' in V1 or V2, right VCD or RVH Borderline T abnormalities, anterior leads Compared to ECG 02/01/2021 11:01:48 Ventricular premature complex(es) now present Right ventricular hypertrophy now present RSR' in V1 or V2 now present Sinus rhythm no longer present T-wave abnormality still present Electronically Signed On 04-21-2021 7:24:19 CDT by Raghu Salazar [email or web address] <ELECTRONICALLY SIGNED> By: Raghu Salazar MD, [facility] 04/21/21 0724 4 4 Raghu Salazar MD, [facility] /EPI
== END | disposition home or self-care (01) ==
LOC: CATH 07:07
PROVIDERS: ATTEND Internal Medicine Cardiovascular Disease
DX: R07.9 Chest pain, unspecified (principal); R94.39 Abnormal result of other cardiovascular function study; I25.10 Atherosclerotic heart disease of native coronary artery without angina pectoris; I10 Essential (primary) hypertension; E78.00 Pure hypercholesterolemia, unspecified; D64.9 Anemia, unspecified; N40.0 Benign prostatic hyperplasia without lower urinary tract symptoms; I49.5 Sick sinus syndrome; I48.91 Unspecified atrial fibrillation; I48.92 Unspecified atrial flutter; E66.09 Other obesity due to excess calories; Z98.890 Other specified postprocedural states; Z79.899 Other long term (current) drug therapy; Z79.01 Long term (current) use of anticoagulants; Z87.891 Personal history of nicotine dependence

== ENCOUNTER → 2021-05-04 | Outpatient (CLI) | payer OTHER | LOC: SJCVC 15:41 | PROVIDERS: ATTEND Internal Medicine Cardiovascular Disease | DX: R94.31 Abnormal electrocardiogram [ECG] [EKG] (principal); I48.91 Unspecified atrial fibrillation; I25.10 Atherosclerotic heart disease of native coronary artery without angina pectoris; I48.0 Paroxysmal atrial fibrillation; E78.00 Pure hypercholesterolemia, unspecified; R60.9 Edema, unspecified; E78.5 Hyperlipidemia, unspecified; Z98.890 Other specified postprocedural states; Z79.82 Long term (current) use of aspirin; Z79.899 Other long term (current) drug therapy; Z87.891 Personal history of nicotine dependence; Z82.49 Family history of ischemic heart disease and other diseases of the circulatory system; Z86.16 Personal history of COVID-19 ==

== ENCOUNTER → 2021-05-31 | Outpatient (CLI) | payer OTHER | LOC: SJCVC 14:54 | PROVIDERS: ATTEND Internal Medicine Cardiovascular Disease | DX: I45.10 Unspecified right bundle-branch block (principal); I48.0 Paroxysmal atrial fibrillation; I48.92 Unspecified atrial flutter; G47.33 Obstructive sleep apnea (adult) (pediatric); I25.10 Atherosclerotic heart disease of native coronary artery without angina pectoris; E78.5 Hyperlipidemia, unspecified; Z98.890 Other specified postprocedural states; Z79.82 Long term (current) use of aspirin; Z79.899 Other long term (current) drug therapy; Z87.891 Personal history of nicotine dependence; Z86.16 Personal history of COVID-19; Z82.49 Family history of ischemic heart disease and other diseases of the circulatory system ==

== ENCOUNTER → 2021-08-05 | Outpatient (CLI) | payer OTHER ==
[~2021-08-05] MED LIST changes: +FLECAINIDE ACE150 MG PO; -FLECAINIDE ACET50 M2 PO
== END ==
LOC: LAB 05:54
PROVIDERS: ATTEND Student in an Organized Health Care Education/Training Program
DX: Z01.812 Encounter for preprocedural laboratory examination (principal); Z20.822 Contact with and (suspected) exposure to COVID-19

== ENCOUNTER → 2021-08-09 | Outpatient (CLI) | payer OTHER ==
[~2021-08-09] VITALS: Ht 177.8 cm; Wt 104.3 kg
== END | disposition home or self-care (01) ==
LOC: GI
PROVIDERS: ATTEND Internal Medicine Gastroenterology
DX: Z12.11 Encounter for screening for malignant neoplasm of colon (principal); Z86.010 Personal history of colon polyps; K57.30 Diverticulosis of large intestine without perforation or abscess without bleeding; K64.8 Other hemorrhoids; I10 Essential (primary) hypertension; I25.10 Atherosclerotic heart disease of native coronary artery without angina pectoris; I48.91 Unspecified atrial fibrillation; N40.0 Benign prostatic hyperplasia without lower urinary tract symptoms; G47.30 Sleep apnea, unspecified; Z98.890 Other specified postprocedural states; Z79.899 Other long term (current) drug therapy; Z87.19 Personal history of other diseases of the digestive system; Z98.41 Cataract extraction status, right eye; Z98.42 Cataract extraction status, left eye
CPT/HCPCS: 62110; 62900

== ENCOUNTER → 2021-11-09 | Outpatient (CLI) | payer OTHER | LOC: SJCVC 09:00 | PROVIDERS: ATTEND Internal Medicine Cardiovascular Disease | DX: R94.31 Abnormal electrocardiogram [ECG] [EKG] (principal); I25.10 Atherosclerotic heart disease of native coronary artery without angina pectoris; I48.0 Paroxysmal atrial fibrillation; E78.00 Pure hypercholesterolemia, unspecified; R60.9 Edema, unspecified; E78.5 Hyperlipidemia, unspecified; Z87.891 Personal history of nicotine dependence; Z72.89 Other problems related to lifestyle; Z79.82 Long term (current) use of aspirin; Z79.899 Other long term (current) drug therapy ==